=== PATIENT | male | born 1940 | race Caucasian/White ===

== ENCOUNTER 2017-02-21 14:30 | Outpatient (RCR) | payer MEDICARE | END 2017-05-22 | disposition home or self-care (01) | LOC: ONC 14:30 | PROVIDERS: ATTEND Radiology Radiation Oncology | DX: C61 Malignant neoplasm of prostate (principal) | CPT/HCPCS: 99213 ==

== ENCOUNTER → 2017-07-10 | Outpatient (CLI) | payer MEDICARE | LOC: EDSTATUS 05-23 14:27 → ONC 14:29 | PROVIDERS: ATTEND Radiology Radiation Oncology | DX: C61 Malignant neoplasm of prostate (principal) | CPT/HCPCS: 99213 ==

== ENCOUNTER 2018-03-03 19:32 | Inpatient (IN) | payer MEDICARE ==
[~2018-03-03] VITALS: Ht 167.6 cm; Wt 75.8 kg
[2018-03-03] VITALS (7 sets, daily range): BP systolic 129–164; BP diastolic 77–87
--- OUTSIDE RECORDS SUMMARY | 2018-03-03 19:38 | XMS REPORT | Continuity of Care Document ---
Author Author [facility] Organization [facility] Address Unknown Phone Unavailable Allergies There is no data. Medications There is no data. Problems Date Dx Coded Attending Type Code Diagnosis Diagnosed By 05/27/2015 DANIS HALEY MD Ot 185 07/14/2015 UYEN CHÁVEZ MD Ot 185 07/21/2015 UYEN CHÁVEZ MD Ot 185 MALIGN NEOPL PROSTATE 09/24/2015 UYEN CHÁVEZ MD Ot 185 10/08/2015 UYEN CHÁVEZ MD Ot C61 10/08/2015 UYEN CHÁVEZ MD Ot Z51.0 11/04/2015 UYEN CHÁVEZ MD Ot C61 MALIGNANT NEOPLASM OF PROSTATE 11/04/2015 UYEN CHÁVEZ MD Ot Z51.0 ENCOUNTER FOR ANTINEOPLASTIC RADIATION T 11/30/2015 YUEN CHÁVEZ MD E Ot C61 11/30/2015 UYEN CHÁVEZ MD Ot Z51.0 11/30/2015 UYEN CHÁVEZ MD Ot C61 11/30/2015 UYEN CHÁVEZ MD E Ot Z51.0 12/13/2015 UYEN CHÁVEZ MD Ot C61 06/02/2016 UYEN CHÁVEZ MD Ot C61 MALIGNANT NEOPLASM OF PROSTATE 06/05/2016 UYEN CHÁVEZ MD Ot C61 MALIGNANT NEOPLASM OF PROSTATE 06/09/2016 UYEN CHÁVEZ MD Ot C61 MALIGNANT NEOPLASM OF PROSTATE 02/22/2017 UYEN CHÁVEZ MD Ot C61 MALIGNANT NEOPLASM OF PROSTATE 04/04/2017 UYEN CHÁVEZ MD Ot C61 MALIGNANT NEOPLASM OF PROSTATE 05/22/2017 UYEN CHÁVEZ MD Ot C61 MALIGNANT NEOPLASM OF PROSTATE 07/10/2017 UYEN CHÁVEZ MD Ot C61 MALIGNANT NEOPLASM OF PROSTATE 07/20/2017 UYEN CHÁVEZ MD Ot C61 MALIGNANT NEOPLASM OF PROSTATE 02/08/2018 DANIS HALEY MD Ot 185 MALIGN NEOPL PROSTATE 02/08/2018 UYEN CHÁVEZ MD Ot C61 MALIGNANT NEOPLASM OF PROSTATE 02/08/2018 UYEN CHÁVEZ MD Ot C61 MALIGNANT NEOPLASM OF PROSTATE 02/08/2018 UYEN CHÁVEZ MD Ot C61 MALIGNANT NEOPLASM OF PROSTATE 02/25/2018 GRIFFIN WADDELL FACC, TEJAL FACP CCDS Ot E78.4 OTHER HYPERLIPIDEMIA 02/25/2018 GRIFFIN WADDELL FACC, TEJAL FACP CCDS Ot I25.10 ATHSCL HEART DISEASE OF [place] CORONARY 02/25/2018 GRIFFIN WADDELL FACC, TEJAL FACP CCDS Ot I50.31 ACUTE DIASTOLIC (CONGESTIVE) HEART FAILU 02/25/2018 GRIFFIN WADDELL FACC, TEJAL FACP CCDS Ot R53.1 WEAKNESS 02/25/2018 GRIFFIN WADDELL FACC, ALI FACP CCDS Ot Z85.46 PERSONAL HISTORY OF MALIGNANT NEOPLASM O Procedures There is no data. Results There is no data. Encounters ACCT No. Visit Date/Time Discharge Status Pt. Type Provider Facility Loc./Unit Complaint [id number] 02/11/2018 10:50:00 02/11/2018 23:59:59 CLS Outpatient TEJAL MOYA MD, FACC FACP CCDS [facility] CARD WEAKNESS, ACUTE DIASTOLIC CHF [id number] 07/10/2017 14:29:00 07/10/2017 23:59:59 CLS Outpatient UYEN CHÁVEZ MD [facility] ONC [id number] 02/21/2017 14:30:00 05/22/2017 00:01:00 DIS Outpatient UYEN CHÁVEZ MD [facility] ONC [id number] 05/30/2016 12:07:00 05/30/2016 23:59:59 CLS Outpatient UYEN CHÁVEZ MD [facility] ONC [id number] 11/30/2015 13:11:00 11/30/2015 23:59:59 CLS Outpatient UYEN CHÁVEZ MD [facility] ONC [id number] 10/20/2015 12:35:00 11/04/2015 00:01:00 DIS Outpatient UYEN CHÁVEZ MD [facility] ONC [id number] 07/08/2015 08:08:00 07/21/2015 00:01:00 DIS Outpatient UYEN CHÁVEZ MD [facility] ONC [id number] 05/05/2015 09:09:00 05/05/2015 23:59:59 CLS Outpatient TERA WADDELL, DANIS Carlin [facility] RAD PROSTATE CA
[2018-03-03 19:53] LABS: BASOPHILS % (AUTO) 0 % (0-10); EOSINOPHILS # (AUTO) 0.1 10^3/uL (0.0-0.3); EOSINOPHILS % (AUTO) 1 % (0-10); HEMATOCRIT 38 % (40-54); HEMOGLOBIN 12.7 G/DL (13.3-17.7); LYMPHOCYTES # (AUTO) 0.8 X 10^3 (1.0-4.0); LYMPHOCYTES % (AUTO) 18 % (12-44); MEAN CORPUSCULAR HEMOGLOBIN 30 PG (25-34); MEAN CORPUSCULAR HGB CONC 33 G/DL (32-36); MEAN CORPUSCULAR VOLUME 90 FL (80-99); MONOCYTES # (AUTO) 0.3 X 10^3 (0.0-1.0); MONOCYTES % (AUTO) 7 % (0-12); NEUTROPHILS # (AUTO) 3.4 X 10^3 (1.8-7.8); NEUTROPHILS % (AUTO) 73 % (42-75); PLATELET COUNT 146 10^3/uL (130-400); RED BLOOD COUNT 4.22 10^6/uL (4.35-5.85); RED CELL DISTRIBUTION WIDTH 14.4 % (10.0-14.5); WHITE BLOOD COUNT 4.7 10^3/uL (4.3-11.0)
--- NOTE | 2018-03-03 19:57 | ED Respiratory ---
General Chief Complaint: Respiratory Problems Stated Complaint: DIFF BREATHING Nursing Triage Note: PT TO ED 8 W/ C/O SOB X1 WK, WORSE PAST 3 DAYS. REPORTS HAS FLUID AROUND HIS HEART W/ A "DRAIN" THAT WAS RECENTLY PLACED. Source: patient Exam Limitations: no limitations History of Present Illness Date Seen by Provider: March 03, 2018 Time Seen by Provider: 19:35 Initial Comments Here with report of shortness of air that has worsened over the last 2 days. Was in the hospital at [facility] in [place] with report of significant amount of pleural effusion as well as pericardial effusion. He did have a drain and had about a liter of fluid taken off each area. This was apparently better. He was short of breath when he left the hospital a week ago on worse until presentation to today. Normally follows with Dr. Chatterjee. Complains of swelling in his legs with left greater than right and swelling although to the scrotum. This is apparently not as bad as it has been but is still swollen. Denies fevers or vomiting. Does complain of weakness. Reports taking his meds as directed. Timing/Duration: week, getting worse Severity: moderate Modifying Factors: Worse With Activity; Improves With Rest Associated Symptoms: cough; No fever/chills, No nasal congestion, No nasal drainage; shortness of breath Allergies and Home Medications Allergies Coded Allergies: No Known Drug Allergies (Unverified , 03/03/18) Patient Home Medication List Home Medication List Reviewed: Yes Review of Systems Constitutional: see HPI; No chills, No fever; malaise, weakness EENTM: no symptoms reported Respiratory: see HPI, dyspnea on exertion, short of breath; No wheezing Cardiovascular: No chest pain; edema Gastrointestinal: No abdominal pain, No nausea, No vomiting Genitourinary: no symptoms reported Musculoskeletal: see HPI; No joint pain; muscle weakness Skin: change in color, other Psychiatric/Neurological: No Symptoms Reported Hematologic/Lymphatic: No Symptoms Reported All Other Systems Reviewed Negative Unless Noted: Yes Past Rstbjdx-Kzwstv-Wysmyn Hx Past Med/Social Hx: Reviewed Nursing Past Med/Soc Hx Patient Social History Alcohol Use: Denies Use Recreational Drug Use: No Smoking Status: Former Smoker Type Used: Cigarettes Former Smoker, Quit: February 19, 1986 2nd Hand Smoke Exposure: No Recent Foreign Travel: No Contact w/Someone Who Travel: No Recent Infectious Disease Expo: No Recent Hopitalizations: No Physical Abuse: No Sexual Abuse: No Mistreated: No Fear: No Past Medical History Surgeries: Yes (HERNIA REPAIR, "DRAIN IN HEART", AAA, ROTATOR CUFF) Cardiac Respiratory: No Cardiac: Yes Heart Attack, High Cholesterol Neurological: No Genitourinary: No Gastrointestinal: No Musculoskeletal: No Endocrine: No Cancer: Yes Bladder, Prostate, Bone, Skin Psychosocial: No Nursing Suicide Risk Score: 0 Integumentary: No Blood Disorders: No Family Medical History Reviewed Nursing Family Hx No Pertinent Family Hx Physical Exam Vital Signs Vital Signs - First Documented 03/03/18 03/03/18 19:36 19:52 Temp 98.0 Pulse 94 Resp 24 B/P (MAP) 164/77 (106) Pulse Ox 93 O2 Delivery Room Air O2 Flow Rate 2.00 Capillary Refill : Less Than 3 Seconds General Appearance: WD/WN, no apparent distress HEENT: PERRL/EOMI, pharynx normal Neck: full range of motion, supple Respiratory: no respiratory distress, no accessory muscle use, other ( hyperresonant sounds in the bases bilateral with left greater than right.) Cardiovascular: no murmur, tachycardia Gastrointestinal: non tender, soft, other (central epigastric incision were previous drain site was. Clean dry and intact.) Extremities: no pedal edema (bilateral left greater than right up to the level of the knee.) Neurologic/Psychiatric: alert, oriented x 3 Skin: normal color, warm/dry Progress/Results/Core Measures Suspected Sepsis Recent Fever Within 48 Hours: No Infection Criteria Present: None New/Unexplained Altered Menta: No Sepsis Screen: No Definite Risk SIRS Temperature:98.0 Pulse: 94 Respiratory Rate: 24 Laboratory Tests 03/03/18 19:47: White Blood Count 4.7 Blood Pressure 164 /77 Mean: 106 Laboratory Tests 03/03/18 19:47: Creatinine 1.10, Platelet Count 146, Total Bilirubin 0.8 Results/Orders Lab Results Laboratory Tests Test 03/03/18 19:47 Range/Units White Blood Count 4.7 4.3-11.0 10^3/uL Red Blood Count 4.22 L 4.35-5.85 10^6/uL Hemoglobin 12.7 L 13.3-17.7 G/DL Hematocrit 38 L 40-54 % Mean Corpuscular Volume 90 80-99 FL Mean Corpuscular Hemoglobin 30 25-34 PG Mean Corpuscular Hemoglobin Concent 33 32-36 G/DL Red Cell Distribution Width 14.4 10.0-14.5 % Platelet Count 146 130-400 10^3/uL Mean Platelet Volume 11.0 H 7.4-10.4 FL Neutrophils (%) (Auto) 73 42-75 % Lymphocytes (%) (Auto) 18 12-44 % Monocytes (%) (Auto) 7 0-12 % Eosinophils (%) (Auto) 1 0-10 % Basophils (%) (Auto) 0 0-10 % Neutrophils # (Auto) 3.4 1.8-7.8 X 10^3 Lymphocytes # (Auto) 0.8 L 1.0-4.0 X 10^3 Monocytes # (Auto) 0.3 0.0-1.0 X 10^3 Eosinophils # (Auto) 0.1 0.0-0.3 10^3/uL Basophils # (Auto) 0.0 0.0-0.1 10^3/uL Sodium Level 140 135-145 MMOL/L Potassium Level 4.8 3.6-5.0 MMOL/L Chloride Level 109 H 98-107 MMOL/L Carbon Dioxide Level 20 L 21-32 MMOL/L Anion Gap 11 5-14 MMOL/L Blood Urea Nitrogen 36 H 7-18 MG/DL Creatinine 1.10 0.60-1.30 MG/DL Estimat Glomerular Filtration Rate > 60 BUN/Creatinine Ratio 33 Glucose Level 197 H 70-105 MG/DL Calcium Level 8.2 L 8.5-10.1 MG/DL Total Bilirubin 0.8 0.1-1.0 MG/DL Aspartate Amino Transf (AST/SGOT) 34 5-34 U/L Alanine Aminotransferase (ALT/SGPT) 26 0-55 U/L Alkaline Phosphatase 875 H 40-136 U/L Myoglobin 66.6 10.0-92.0 NG/ML Troponin I < 0.30 <0.30 NG/ML C-Reactive Protein High Sensitivity 5.34 H 0.00-0.50 MG/DL B-Type Natriuretic Peptide 97.1 <100.0 PG/ML Total Protein 6.6 6.4-8.2 GM/DL Albumin 3.6 3.2-4.5 GM/DL Thyroid Stimulating Hormone (TSH) 0.68 0.35-4.94 UIU/ML My Orders Orders - ENEDINA ARIAS MD BNP (03/03/18 19:45) Cbc With Automated Diff (03/03/18:45) Comprehensive Metabolic Panel (03/03/18:45) Hs C Reactive Protein (03/03/18:45) Thyroid Stimulating Hormone (03/03/18 19:45) Troponin I (03/03/18:45) Myoglobin Serum (03/03/18:45) Chest 1 View, Ap/Pa Only (03/03/18:45) Ekg Tracing (03/03/18:45) O2 (03/03/18:45) Monitor-Rhythm Ecg Trace Only (03/03/18:45) Morphine Injection (Morphine Injection (03/03/18 20:44) Morphine Injection (Morphine Injection (03/03/18 20:41) Vital Signs/I&O 03/03/18 03/03/18 19:36 19:52 Temp 98.0 Pulse 94 Resp 24 B/P (MAP) 164/77 (106) Pulse Ox 93 93 O2 Delivery Room Air Nasal Cannula O2 Flow Rate 2.00 Capillary Refill : Less Than 3 Seconds Blood Pressure Mean: 106 Progress Note : Progress Note Seen and evaluated. IV, labs, EKG and chest x-ray ordered. Monitor patient. 2100: Labs reviewed. Patient received morphine 4 mg IV for air hunger and pain and this did help quite a bit. Complicated case in that he has the recent pericardial window and the return of the large left pleural effusion. Unsure of etiology. Also has edema but the BNP is not elevated. There is concerns about other etiology as a cause of the edema including cancer conditions. I did discuss the case with Dr. Zacarias. He agrees that the patient is able to be managed here and will need draining of the pleural effusion. He is concerned about other etiology for the edema including possibly cancer. Patient has not had imaging of the abdomen/pelvis recently. I did discuss the case with Dr. Sheikh carton liner for hospitalist service. He accepts patient for admission. He also has concerns about the possibility of other etiology for edema and effusions. Patient will be under the service of Dr. Chatterjee for consult as the patient was due to see him and his info has been sent to Dr. Chatterjee. I did write for consult of Dr. Chatterjee and Dr. Mayen in the morning. I did discuss all of this with the patient and family. They do report that he did have prostate cancer and there apparently was some bony lesions associated with this. He did receive radiation therapy on this and that was about 3 years ago. Was released last year. It does not appear that he's had recent imaging of the abdomen and there are certainly is concern about abdominal pathology due to elevated alkaline phosphatase and low calcium. This may be the result of bony lesions or other lesions. Dr. Sheikh did agree that CT abdomen and pelvis with contrast would be indicated but this could wait until the patient was in the hospital and could be done tomorrow. We will initiate IV furosemide for the edema and effusions. Admit to the ICU. Patient and family agree with plan. ECG Initial ECG Impression Date: March 03, 2018 Initial ECG Impression Time: 19:52 Initial ECG Rate: 93 Initial ECG Rhythm: Normal Sinus Initial ECG Comparisson: No Previous ECG Available Comment Sinus rhythm with normal axis. No evidence of ST elevation [place]. No previous available for comparison. Interpreted by me. Departure Communication (Admissions) Time/Spoke to Admitting Phy: 20:54 Time/Spoke to Consulting Phy: 20:45 Impression Primary Impression: Pleural effusion, left Additional Impressions: Dyspnea Qualified Codes: R06.02 - Shortness of breath Edema Qualified Codes: R60.9 - Edema, unspecified Elevated alkaline phosphatase level Disposition: ADMITTED INPATIENT Condition: Stable Admissions Decision to Admit Reason: Admit from ER (General) Decision to Admit/Date: March 03, 2018 Time/Decision to Admit Time: 20:45 Departure-Patient Inst. Referrals: JOSE ANGEL SIN APRN (PCP/Family) Primary Care Physician ENEDINA ARIAS MD March 03, 2018 19:57
--- NOTE | 2018-03-03 20:07 | Diagnostic Imaging Report ---
INDICATION: Shortness of breath. EXAMINATION: Single view of the chest was obtained. FINDINGS: There is a large left pleural effusion. Heart appears mildly enlarged. Vascularity is normal. IMPRESSION: Large left pleural effusion. Dictated by: Dictated on workstation # [id number]
[2018-03-03 20:24] LABS: ALANINE AMINOTRANSFERASE 26 U/L (0-55); ALBUMIN 3.6 GM/DL (3.2-4.5); ALKALINE PHOSPHATASE 875 U/L (40-136); BILIRUBIN,TOTAL 0.8 MG/DL (0.1-1.0); BUN/CREATININE RATIO 33; CALCIUM 8.2 MG/DL (8.5-10.1); CARBON DIOXIDE 20 MMOL/L (21-32); CHLORIDE 109 MMOL/L (98-107); GFR ESTIMATED > 60; GLUCOSE 197 MG/DL (70-105); POTASSIUM 4.8 MMOL/L (3.6-5.0); SODIUM 140 MMOL/L (135-145); TOTAL PROTEIN 6.6 GM/DL (6.4-8.2)
[2018-03-03] MEDS ORDERED: morphine INJ 10 MG/ML 1ML (SYR OR VIAL) ONE (20:41)
[2018-03-03] MEDS ORDERED: morphine INJ 10 MG/ML 1ML (SYR OR VIAL) IVP STA (20:44)
[2018-03-03 20:45] LABS: MYOGLOBIN SERUM 66.6 NG/ML (10.0-92.0)
[2018-03-03] MEDS ORDERED: CATHETER FLUSH 10 ML SYR IV PRN (22:45)
[2018-03-03] MEDS ORDERED: RT-ALBUTEROL SULF 2.5 MG/3 ML PRE-MIX VIAL INH PRN (23:15)
[2018-03-03] MEDS: morphine INJ 4 MG/ML 1 ML (VIAL/SYRINGE) IV PRN (23:40)
[2018-03-04] VITALS (22 sets, daily range): BP systolic 94–156; BP diastolic 52–109
[2018-03-04] MEDS: morphine INJ 4 MG/ML 1 ML (VIAL/SYRINGE) IV PRN (03:15)
[2018-03-04 04:22] LABS: BASOPHILS % (AUTO) 0 % (0-10); EOSINOPHILS # (AUTO) 0.1 10^3/uL (0.0-0.3); EOSINOPHILS % (AUTO) 1 % (0-10); HEMATOCRIT 37 % (40-54); HEMOGLOBIN 12.3 G/DL (13.3-17.7); LYMPHOCYTES # (AUTO) 0.6 X 10^3 (1.0-4.0); LYMPHOCYTES % (AUTO) 14 % (12-44); MEAN CORPUSCULAR HEMOGLOBIN 30 PG (25-34); MEAN CORPUSCULAR HGB CONC 33 G/DL (32-36); MEAN CORPUSCULAR VOLUME 90 FL (80-99); MEAN PLATELET VOLUME 11.4 FL (7.4-10.4); MONOCYTES # (AUTO) 0.4 X 10^3 (0.0-1.0); MONOCYTES % (AUTO) 8 % (0-12); NEUTROPHILS # (AUTO) 3.6 X 10^3 (1.8-7.8); NEUTROPHILS % (AUTO) 77 % (42-75); PLATELET COUNT 133 10^3/uL (130-400); RED BLOOD COUNT 4.09 10^6/uL (4.35-5.85); RED CELL DISTRIBUTION WIDTH 14.6 % (10.0-14.5); WHITE BLOOD COUNT 4.7 10^3/uL (4.3-11.0)
[2018-03-04 04:37] LABS: ALANINE AMINOTRANSFERASE 21 U/L (0-55); ALBUMIN 3.4 GM/DL (3.2-4.5); ALKALINE PHOSPHATASE 861 U/L (40-136); BILIRUBIN,TOTAL 0.9 MG/DL (0.1-1.0); BUN/CREATININE RATIO 42; CALCIUM 8.1 MG/DL (8.5-10.1); CARBON DIOXIDE 18 MMOL/L (21-32); CHLORIDE 110 MMOL/L (98-107); CREATININE SERUM 0.79 MG/DL (0.60-1.30); GFR ESTIMATED > 60; GLUCOSE 157 MG/DL (70-105); MAGNESIUM 2.5 MG/DL (1.8-2.4); PHOSPHORUS 2.9 MG/DL (2.3-4.7); POTASSIUM 4.4 MMOL/L (3.6-5.0); SODIUM 140 MMOL/L (135-145); TOTAL PROTEIN 6.3 GM/DL (6.4-8.2)
[2018-03-04] MEDS: POTASSIUM CL 10MEQ/50ML IVPB 50 ML IV SCH (05:05)
[2018-03-04] MEDS: inSUlin ASPART (NovoLOG) 1 UNIT/0.01 ML (CHARGE PER UNIT) SQ SCH ×4 (05:06→22:19)
[2018-03-04] MEDS: KCL 20 MEQ TAB (K-DUR) PO SCH (05:06)
[2018-03-04] MEDS: MAGNESIUM 1 GM/100 ML IVPB 100 ML IV SCH (05:06)
--- NOTE | 2018-03-04 05:09 | Pulmonary Consultation ---
History of Present Illness History of Present Illness Date of Consultation 03/04/18 05:04 Time Seen by Provider: 05:04 Date of Admission History of Present Illness 77yo with hx of prostate cancer and mets to the bone Dx about 6 mo ago per patient presented secondary to worsening SOB over the last 2 days. Pt was recently hospitalized at [facility] in [place] secondary to pleural and pericardial effusion which were both drained. Pt also c/o bilateral LE edema and scrotal edema. I am consulted for pulmonary management. Allergies and Home Medications Allergies Coded Allergies: No Known Drug Allergies (Unverified , 03/03/18) Home Medications Acetaminophen 500 Mg Tablet, 1,500 MG PO BID PRN for PAIN-MILD, (Reported) Aspirin 81 Mg Tab.chew, 81 MG PO DAILY, (Reported) Cetirizine HCl 10 Mg Tablet, 10 MG PO DAILY PRN for ALLERGIES, (Reported) Clopidogrel Bisulfate 75 Mg Tablet, 75 MG PO DAILY, (Reported) Fluticasone Propionate 9.9 Ml Ione.susp, 2 SPRAY NS DAILY PRN for ALLERGIES, ( Reported) Furosemide 40 Mg Tablet, 40 MG PO 1700, (Reported) Hydrocodone/Acetaminophen 1 Each Tablet, 1 TAB PO Q4H PRN for PAIN-MODERATE, ( Reported) Metoprolol Succinate 25 Mg Tab.er.24h, 25 MG PO DAILY, (Reported) Paroxetine HCl 20 Mg Tablet, 20 MG PO DAILY, (Reported) Potassium Chloride 20 Meq Tab.er.prt, 20 MEQ PO 1700, (Reported) Past Jisnkfj-Cmyolv-Ikvvtc Hx Past Med/Social Hx: Reviewed Nursing Past Med/Soc Hx Patient Social History Alcohol Use: Denies Use Recreational Drug Use: No Smoking Status: Former Smoker Type Used: Cigarettes Former Smoker, Quit: February 19, 1986 2nd Hand Smoke Exposure: No Recent Foreign Travel: No Contact w/Someone Who Travel: No Recent Infectious Disease Expo: No Recent Hopitalizations: No Physical Abuse: No Sexual Abuse: No Mistreated: No Fear: No Immunizations Up To Date Date of Pneumonia Vaccine: Jul 04, 2016 Past Medical History Surgeries: Yes (HERNIA REPAIR, AAA, ROTATOR CUFF, PERICARDIAL WINDOW) Cardiac Respiratory: No Cardiac: Yes (7 CARDIAC STENTS, 4 PERIPHERAL STENTS, AAA) Heart Attack, High Cholesterol Neurological: No Genitourinary: Yes Prostate Problems Gastrointestinal: No Musculoskeletal: No Endocrine: Yes (DIET CONTROLLED.) Are Your Blood Sugars Over 250: No HEENT: No Cancer: Yes Bladder, Prostate, Bone, Skin Did You Recieve Any Treatments: Yes What Type of Treatment Did You: Radiation Psychosocial: No Nursing Suicide Risk Score: 0 Integumentary: No Blood Disorders: No Family Medical History Reviewed Nursing Family Hx No Pertinent Family Hx Review of Systems Time Seen by Provider: 05:19 Constitutional: Sweats, Weakness, Malaise ENT: Nose congestion Respiratory: Shortness of breath, SOB with excertion Cardiovascular: Paroxysmal Noc. Dyspnea Gastrointestinal: No: Nausea, Vomiting, Abdominal Pain, Diarrhea, Constipation , Melena, Hematochezia, Other Neurological: Weakness, Confusion Exam Exam Vital Signs Date Time Temp Pulse Resp B/P (MAP) Pulse Ox O2 Delivery O2 Flow Rate FiO2 03/04/18 02:00 98 29 139/87 (104) 93 Nasal Cannula 2.00 03/04/18 01:00 97 03/04/18 01:00 97 23 156/87 (110) 97 Nasal Cannula 2.00 03/04/18 00:00 96 Nasal Cannula 2.00 03/04/18 00:00 95 17 141/81 (101) 94 Nasal Cannula 2.00 03/03/18 23:15 89 30 136/78 (97) 96 Nasal Cannula 2.00 03/03/18 23:06 87 2 32 03/03/18 23:00 91 30 129/82 (98) 96 Nasal Cannula 2.00 03/03/18 22:45 81 17 130/87 (101) 97 Nasal Cannula 2.00 03/03/18 22:35 Nasal Cannula 2.00 03/03/18 22:30 86 33 135/81 (99) 98 Nasal Cannula 2.00 03/03/18 22:15 87 23 133/82 (99) 99 Nasal Cannula 2.00 03/03/18 22:01 87 03/03/18 22:00 87 21 147/87 (107) 96 Nasal Cannula 2.00 03/03/18 21:50 98.6 Nasal Cannula 2.00 03/03/18 21:40 92 24 132/76 97 Nasal Cannula 2.00 03/03/18 19:52 93 Nasal Cannula 2.00 03/03/18 19:36 98.0 94 24 164/77 (106) 93 Room Air I & O 03/04/18 07:00 Intake Total 100 ml Output Total 375 ml Balance -275 ml General Appearance: Anxious, Moderate Distress HEENT: Normal ENT Inspection, Pharynx Normal Neck: Full Range of Motion, Supple Respiratory: Decreased Breath Sounds (left > Right) Cardiovascular: Other (edema bilaterally upto scrotom ) Capillary Refill: Less Than 3 Seconds Gastrointestinal: non tender, soft, other (central epigastric incision were previous drain site was. Clean dry and intact.) Neurologic/Psychiatric: Alert, Oriented x3 Skin: Normal Color, Warm/Dry Results Lab Laboratory Tests 03/03/18 19:47 03/04/18 03:45 Assessment/Plan Assessment/Plan Large left pleural effusion -Pt states he very SOB and wants effusion drained. He is on Plavix however pt is willing to take risk of bleeding secondary to severe SOB. -Will do thoracentesis this AM. BNP is only 97 -Will send pleural fluid down to cytology -Obtain records from [facility] hx of prostate cancer with mets to bone -Alk phos is elevated -check PSA -Check CT of chest/abd/pelvis with IV contrast Hx of pericardial effusion s/p window 255 ESTEBAN PEACOCK DO March 04, 2018 05:09
[2018-03-04] MEDS ORDERED: LIDOCAINE 1% INJ 20 ML 20 ML VIAL ONE (05:18)
[2018-03-04] MEDS ORDERED: ONDANSETRON 4 MG/2 ML (SDV) Z0FRAN ONE (05:39)
[2018-03-04] MEDS ORDERED: ONDANSETRON 4 MG/2 ML (SDV) Z0FRAN IVP ONE (06:00)
[2018-03-04] MEDS ORDERED: LIDOCAINE 1% INJ 20 ML 20 ML VIAL INJ ONE (06:00)
[2018-03-04] MEDS: RT-ALBUTEROL SULF 2.5 MG/3 ML PRE-MIX VIAL INH SCH ×4 (06:31→19:40)
[2018-03-04] MEDS: FUROSEMIDE 40 MG/4 ML INJ (LASIX) IV SCH ×2 (06:57→17:00)
--- NOTE | 2018-03-04 07:13 | Pulmonary Procedures ---
Pulmonary Procedures Date of Procedure Date of Service: March 04, 2018 Procedure: US guided complex thoracentesis Preop DX: bilateral pleural effusion post op DX: Same ([2500]cc of red/orange fluid obtained) Complications: None After informed consent obtained US was used to localize pleural fluid. Pt has [ bilateral L>R] pleural effusions. Skin was anesthetized at approximately the 10th ICS posterior axillary line. Thoracentesis needle was advanced through the 10th ICS posterior axillary line. Needle was removed and catheter left in place.2500]cc of red/orange fluid obtained using vacuum bottles. Catheter was then removed. Pt tolerated procedure well. No complications noted. ESTEBAN PEACOCK DO March 04, 2018 07:13
--- NOTE | 2018-03-04 07:28 | Diagnostic Imaging Report ---
INDICATION: Dyspnea. COMPARISON: Comparison is made with the prior examination dated 03/03/2018. FINDINGS: There is persistent elevation of the left hemidiaphragm. There are bibasilar infiltrates. There is moderate central pulmonary venous congestion. There is no pneumothorax. Mediastinum is unremarkable. IMPRESSION: Elevation of the left hemidiaphragm with bibasilar infiltrates. Moderate central pulmonary venous congestion. Dictated by: Dictated on workstation # [id number]
[2018-03-04] MEDS ORDERED: NS 250 ML (IVPB) BAG IV ONE (07:30)
[2018-03-04] MEDS ORDERED: IOHEXOL 350 MG/ML 150 ML (OMNIPAQUE 350) VIAL IV ONE (07:30)
--- NOTE | 2018-03-04 07:30 | Diagnostic Imaging Report ---
INDICATION: Pleural effusion. Comparison made with prior examination 03/04/2018. FINDINGS: Heart size is normal. There is a right perihilar and left basilar infiltrate. There is no pneumothorax. Mediastinum is unremarkable. Left pleural effusion cannot be excluded. IMPRESSION: Right perihilar and left base infiltrate suspect for some pneumonia. A small left pleural effusion cannot be excluded. Dictated by: Dictated on workstation # [id number]
[2018-03-04 07:44] LABS: BODY FLUID TRIGLYCERIDES 805 MG/DL; GLUCOSE,BODY FLUID 144 MG/DL; LDH,BODY FLUID 262 U/L; TOTAL PROTEIN,BODY FLUID 4.5 G/DL
[2018-03-04] MEDS: CLOPIDOGREL 75 MG (PLAVIX) TABLET PO SCH (08:08)
--- NOTE | 2018-03-04 09:02 | History & Physical-Hospitalist ---
History of Present Illness HPI/Chief Complaint Pt is a 77yoCM with a PMH of metastatic prostate cancer,CAD s/p stent, AAA s/p repair, and recent bilateral pericardial effusions and pleural effusions both drained at [facility] in [place] who presented to the ER with CC of SOB. He states all of his symptoms started 3 months ago with SOB, leg swelling, and groin swelling. Unfortunately his PCP closed his clinic so he had only been receiving care and workups from different ERs. Around 1 month ago he presented to the ER at [facility] for evaluation and was admitted for roughly 10 days for pleural effusions and and pericardial effusion. He underwent thoracentesis and pericardial window. He was discharged home improved but still had significant shortness of breath. This worsened prompting him to return to the ER. He was found to be very edematous and given IV lasix. He underwent thoracentesis by Dr Mayen prior to my arrival and he now states his symptoms are much improved. Source: patient Exam Limitations: no limitations Date Seen 03/04/18 Time Seen by Provider: 09:00 Attending Physician Jose Sheikh MD PCP Yuliya Huerta Aprn Referring Physician Date of Admission March 03, 2018 at 9:22 pm Home Medications & Allergies Home Medications Reviewed patient Home Medication Reconciliation performed by pharmacy medication reconciliations product support technician and/or nursing. Patients Allergies have been reviewed. Allergies Allergies Coded Allergies No Known Drug Allergies (Unverified03/03/18) Past Wbvijse-Oeucnu-Wgnobr Hx Past Med/Social Hx: Reviewed Nursing Past Med/Soc Hx Patient Social History Marrital Status: Alcohol Use: Denies Use Recreational Drug Use: No Smoking Status: Former Smoker Former Smoker, Quit: February 19, 1986 Type Used: Cigarettes 2nd Hand Smoke Exposure: No Physical Abuse Screen: No Sexual Abuse: No Recent Foreign Travel: No Contact w/other who traveled: No Recent Hopitalizations: No Recent Infectious Disease Expo: No Immunizations Up To Date Date of Pneumonia Vaccine: Jul 04, 2016 Past Medical History Surgeries: Abdominal, Cardiac, Orthopedic Cardiac: Aneurysm, Coronary Artery Disease, Heart Attack, High Cholesterol Genitourinary: Prostate Problems Are Your Blood Sugars Over 250: No Cancer: Bladder, Prostate, Bone, Skin Did You Recieve Any Treatments: Yes What Type of Treatment Did You: Radiation History of Blood Disorders: No Family History Reviewed Nursing Family Hx Heart Disease, Cancer, Other Conditions/Hx (parkinson's) Review of Systems Constitutional: No chills, No fever EENTM: No blurred vision, No double vision, No nose congestion, No throat pain Respiratory: dyspnea on exertion; No hemoptysis; short of breath Cardiovascular: No chest pain; edema, Hx of Intervention; No palpitations Gastrointestinal: abdominal pain (postsurgical); No constipation, No diarrhea, No nausea, No vomiting Genitourinary: No dysuria, No frequency; hesitancy Musculoskeletal: No joint pain, No muscle pain Skin: other (bruising on abdomen) Psychiatric/Neurological: No Symptoms Reported All Other Systems Reviewed Negative Unless Noted: Yes Physical Exam Physical Exam Vital Signs Vital Signs - First Documented 03/03/18 03/03/18 03/03/18 19:36 19:52 23:06 Temp 98.0 Pulse 94 Resp 24 B/P (MAP) 164/77 (106) Pulse Ox 93 O2 Delivery Room Air O2 Flow Rate 2.00 FiO2 32 Capillary Refill : Less Than 3 Seconds General Appearance: No Apparent Distress, Chronically ill HEENT: PERRL/EOMI, Moist Mucous Membranes; No Scleral Icterus (L), No Scleral Icterus (R) Neck: Non Tender, Supple Respiratory: No Accessory Muscle Use, No Respiratory Distress, Decreased Breath Sounds Cardiovascular: Regular Rate, Rhythm, No Murmur, Normal Peripheral Pulses Gastrointestinal: Normal Bowel Sounds, Soft Extremity: Normal Capillary Refill, No Calf Tenderness, Swelling (of left lower extremity- reports chronic) Neurologic/Psychiatric: Alert, Oriented x3, No Motor/Sensory Deficits, Normal Mood/Affect Skin: Normal Color, Warm/Dry Results Results/Procedures Labs Laboratory Tests 03/03/18 19:47 03/04/18 03:45 03/05/18 03:43 Patient resulted labs reviewed. Imaging: Reviewed Imaging Report Assessment/Plan Admission Diagnosis Recurrent pleural effusions Admission Status: Inpatient Order (span 2 midnights) Reason for Inpatient Admission: pulm eval, thoracentesis Diagnosis/Problems Diagnosis/Problems (1) Pleural effusion, left Status: Acute Assessment & Plan: s/p thoracentesis this AM by Dr Tiarra Ashraf IV lasix fluid sent for culture and path (2) Prostate cancer metastatic to bone Status: Chronic Assessment & Plan: Diagnosed 3 years ago, declined aggressive treatment at the time Concerned that elevated alk phos, recurrently effusions, and anasarca due to recurrence CT Chest/Abd/pelvis ordered- await results Palliative care consult placed (3) Elevated alkaline phosphatase level Status: Acute Assessment & Plan: As above (4) Edema Status: Acute Assessment & Plan: Continue on lasix Await CT results Qualifiers: Edema type: unspecified Qualified Codes: R60.9 - Edema, unspecified (5) CAD (coronary artery disease) Status: Chronic Assessment & Plan: Cardiology consulted, appreciate recs Qualifiers: Coronary Disease-Associated Artery/Lesion type: [place] artery [place] vs. transplanted heart: [place] heart Associated angina: without angina Qualified Codes: I25.10 - Atherosclerotic heart disease of [place] coronary artery without angina pectoris (6) Aortic aneurysm Status: Chronic Assessment & Plan: Found incidentally at outside hospital and s/p repair Qualifiers: Aortic location: abdominal aorta Presence of rupture: without rupture Qualified Codes: I71.4 - Abdominal aortic aneurysm, without rupture Clinical Quality Measures DVT/VTE Risk/Contraindication: Risk Factor Score Per Nursin RFS Level Per Nursing on Admit: 4+=Very High DONA MORAN MD March 04, 2018 09:02
[2018-03-04 09:11] LABS: BODY FLUID SOURCE PLEURAL
--- NOTE | 2018-03-04 09:11 | Diagnostic Imaging Report ---
PROCEDURE: CT angiography of the chest with contrast and CT abdomen and pelvis with contrast. TECHNIQUE: Multiple contiguous axial images were obtained through the chest, abdomen, and pelvis after administration of intravenous contrast. Reconstructed MIP CT angiography acquisitions of the aorta were then performed. INDICATION: Patient is status post thoracentesis. FINDINGS: CT ANGIOGRAM CHEST: The thoracic aorta appears to be normal in caliber. No dissection is identified. The pulmonary arterial system is without evidence of thromboembolism. The central, lobar, and segmental pulmonary arterial branches are without evidence of filling defect. No pericardial fluid is seen. There are moderate to large bilateral pleural effusions layering dependently to a depth of 9.3 cm on the right and 5 cm on the left. No axillary lymphadenopathy is detected. There appears to be mediastinal lymphadenopathy. An enlarged lymph node in the upper mediastinum anterior to the left common carotid is seen measuring 2.5 x 1.6 cm. A prevascular space node measures 1.5 cm. A right paratracheal node measures 3.5 x 2.4 cm. Soft tissue fullness in the subcarinal region is noted. There is bilateral hilar lymphadenopathy. The parenchymal evaluation does show some groundglass patchy infiltrates in the left upper lobe and lingula. There is some parenchymal consolidation in the bilateral lower lobes, consistent with pneumonia or atelectasis. There is a tiny 6 mm nodule in the superior segment of the left lower lobe. There are nodular densities in the anterior right upper lobe, nonspecific, measuring approximately 6 mm. Evaluation of the bony structures does show patchy osteosclerotic lesions throughout the thoracic spine and bilateral ribs, suspicious for osteoblastic metastatic disease. CT ABDOMEN AND PELVIS: There is a tiny nonspecific low density in the left lobe of the liver measuring 7 mm in size. No other liver lesions are seen. The gallbladder does appear to be mildly dilated at approximately 9.0 x 4.8 cm. No gallstones are seen. No biliary ductal dilatation is identified. There does appear to be some soft tissue fullness in the region of the pancreatic tail measuring 3.9 x 2.6 cm. No pancreatic ductal dilatation is seen. The spleen is unremarkable. No adrenal mass is identified. The kidneys are unremarkable. The patient does have an abdominal aortic aneurysm which is infrarenal in location. There is an aortic stent graft in place. Both limbs of the stent graft appear to be patent. The excluded aneurysm sac measures approximately 8.2 cm AP x 8.7 cm transverse. No definite endoleak is seen. No free fluid is identified. The bowel loops are nonobstructed. There is diverticulosis but no evidence of acute diverticulitis. The bladder contains a catheter. There is diffuse bladder wall thickening and nodularity. The prostate is enlarged. Diffuse patchy osseous sclerotic lesions throughout the lumbar spine and bony pelvis are noted, again suspicious for osteoblastic metastatic disease. IMPRESSION: 1. No evidence of pulmonary embolism or thoracic aortic dissection. 2. Large bilateral pleural effusions, greatest on the right, with bilateral pulmonary infiltrates. There is also mediastinal and hilar lymphadenopathy, suspicious for metastatic disease or lymphoma. 3. Infrarenal abdominal aortic aneurysm. No definite evidence of endoleak or rupture is seen. 4. Uncomplicated diverticulosis. 5. Marked bladder wall thickening and nodularity. While this could be owing to chronic bladder outlet obstruction, the possibility of bladder neoplasm cannot be entirely excluded. 6. Soft tissue fullness in the region of the pancreatic tail. An MRI of the abdomen would be useful for further evaluation if clinically indicated. No pancreatic or biliary ductal dilatation is seen. 7. Diffuse sclerotic lesions throughout the axial skeleton, suggestive of osteoblastic metastatic disease. Dictated by: Dictated on workstation # [id number]
[2018-03-04 09:12] LABS: BODY FLUID APPEARENCE MKD CLDY; BODY FLUID COLOR YELLOW; BODY FLUID RBC COUNT 36600 /uL; BODY FLUID WBC TOTAL COUNT 295 /uL
[2018-03-04] MEDS ORDERED: HYDR-3816 PO (09:26)
[2018-03-04] MEDS ORDERED: CINN500C2 PO (09:26)
[2018-03-04] MEDS ORDERED: FLUT9.9S NS (09:26)
[2018-03-04] MEDS ORDERED: CLOP75TA28 PO (09:26)
[2018-03-04] MEDS ORDERED: GLUC500T10 PO (09:26)
[2018-03-04] MEDS ORDERED: CETI10TA20 PO (09:26)
[2018-03-04] MEDS ORDERED: METO-387 PO (09:26)
[2018-03-04] MEDS ORDERED: FURO40TA4 PO (09:26)
[2018-03-04] MEDS ORDERED: PARO20TA5 PO (09:26)
[2018-03-04] MEDS ORDERED: POTA20TA8 PO (09:26)
[2018-03-04] MEDS ORDERED: ACET-2267 PO (09:26)
[2018-03-04] MEDS ORDERED: ASPI-999 PO (09:26)
[2018-03-04] MEDS: HYDROcodone/APAP 7.5 MG/325 MG (LORTAB, LORCET PLUS) TABLET PO PRN ×3 (10:33→22:47)
[2018-03-04 11:14] LABS: BF OTHER CELLS 4 %; BODY FLUID PH 7.7; LYMPHOCYTES,BODY FLUID 89 %
--- NOTE | 2018-03-04 14:03 | Consultation-Cardiology ---
HPI-Cardiology Cardiology Consultation: Date of Consultation 03/04/18 Time Seen by Provider: 09:00 Date of Admission Attending Physician Jose Sheikh MD Admitting Physician Yuliya Huerta Aprn Consulting Physician TEJAL MOYA MD, MA, FACP, FACC, FSCAI, CCDS HPI: Chief Complaint: Shortness of breath 77 yo man with multiple comorbidities that are outlined below, admitted through the ER with increasing shortness of breath for several days that is now much improved after L thoracentesis by Dr Mayen. No cp or palp or syncope. Has bilateral leg and groin/scrotal swelling for several weeks. Denies fever or chills. Notes gen marked weakness and loss of stamina Review of Systems-Cardiology Review of Systems Constitutional: As described under HPI Eyes: No vision change Ears/Nose/Throat: No ear discharge, No nasal drainage, No recent hearing loss Respiratory: As described under HPI Cardiovascular: As described under HPI Gastrointestinal: No constipation, No diarrhea, No nausea, No vomiting Genitourinary: No dysuria, No hematuria, No urine frequency changes Musculoskeletal: back pain (chronic) Skin: No rash, No ulcerations Psychiatric/Neurological: No seizure, No focal weakness, No syncope Hematologic: No bleeding abnormalities All Other Systems Reviewed Negative Unless Noted: Yes DEY-Hdcbfo-Kcbsde Hx Patient Social History Marrital Status: Alcohol Use: Denies Use Recreational Drug Use: No Smoking Status: Former Smoker Type Used: Cigarettes 2nd Hand Smoke Exposure: No Recent Foreign Travel: No Recent Infectious Disease Expo: No Hospitalization with Isolation: Denies Physical Abuse Screen: No Sexual Abuse: No Immunizations Up To Date Date of Pneumonia Vaccine: Jul 04, 2016 Past Medical History PMH As described under Assessment. Family Medical History Family Medical History: Does not report fam h/o early CAD or SCD Allergies and Home Medications Allergies Coded Allergies: No Known Drug Allergies (Unverified , 03/03/18) Home Medications Acetaminophen 500 Mg Tablet, 1,500 MG PO BID PRN for PAIN-MILD, (Reported) Aspirin 81 Mg Tab.chew, 81 MG PO DAILY, (Reported) Cetirizine HCl 10 Mg Tablet, 10 MG PO DAILY PRN for ALLERGIES, (Reported) Clopidogrel Bisulfate 75 Mg Tablet, 75 MG PO DAILY, (Reported) Fluticasone Propionate 9.9 Ml Alpine.susp, 2 SPRAY NS DAILY PRN for ALLERGIES, ( Reported) Furosemide 40 Mg Tablet, 40 MG PO 1700, (Reported) Hydrocodone/Acetaminophen 1 Each Tablet, 1 TAB PO Q4H PRN for PAIN-MODERATE, ( Reported) Metoprolol Succinate 25 Mg Tab.er.24h, 25 MG PO DAILY, (Reported) Paroxetine HCl 20 Mg Tablet, 20 MG PO DAILY, (Reported) Potassium Chloride 20 Meq Tab.er.prt, 20 MEQ PO 1700, (Reported) Patient Home Medication List Home Medication List Reviewed: Yes Physical Exam-Cardiology Physical Exam Vital Signs/I&O 03/04/18 03/04/18 03/04/18 03/04/18 02:00 04:00 04:00 04:45 Temp 98.6 Pulse 98 98 Resp 29 21 B/P (MAP) 139/87 (104) 150/109 (123) Pulse Ox 93 96 92 O2 Delivery Nasal Cannula Nasal Cannula Nasal Cannula O2 Flow Rate 2.00 2.00 2.00 03/04/18 03/04/18 03/04/18 03/04/18 06:00 06:31 07:00 07:00 Temp 98.1 Pulse 105 94 92 Resp 22 20 B/P (MAP) 126/82 (97) 116/76 (89) Pulse Ox 94 100 100 O2 Delivery Nasal Cannula Nasal Cannula Nasal Cannula O2 Flow Rate 2.00 2.00 2.00 03/04/18 03/04/18 03/04/18 03/04/18 08:00 08:00 09:00 09:03 Pulse 90 94 Resp 20 20 B/P (MAP) 109/68 (82) 109/68 (82) Pulse Ox 100 96 100 O2 Delivery Nasal Cannula Nasal Cannula Nasal Cannula Room Air O2 Flow Rate 2.00 2.00 2.00 03/04/18 03/04/18 03/04/18 03/04/18 10:00 11:00 11:10 11:53 Temp 98.2 Pulse 98 104 B/P (MAP) 111/81 (91) 108/71 (83) Pulse Ox 100 94 94 O2 Delivery Room Air Room Air Room Air 03/04/18 12:40 Pulse Ox 97 O2 Delivery Room Air Capillary Refill : Less Than 3 Seconds Constitutional: AAO x 3, well-developed, well-nourished HEENT: EOMI, hearing is well preserved; No xanthelasmas are seen Neck: No carotid bruit; carotid pulses are 2 + bilaterally, with good upstrokes Respiratory: No accessory muscle use, No respiratory distress; other ( Diminshed air enty at bases and dullness to percussion) Cardiovascular: regular rate-rhythm, S1 and S2, systolic murmur (faint GURU at card base) Gastrointestinal: No tender; soft; No guarding, No rebound; audible bowel sounds Extremities: other (mild to mod bilat leg edema); No clubbing, No cyanosis Neurologic/Psychiatric: oriented x 3, grossly intact, power is 5/5 both on sides Skin: No rash on exposed areas, No ulcerations on exposed areas Data Review Labs Laboratory Tests 03/03/18 19:47: White Blood Count 4.7, Red Blood Count 4.22L, Hemoglobin 12.7L, Hematocrit 38L, Mean Corpuscular Volume 90, Mean Corpuscular Hemoglobin 30, Mean Corpuscular Hemoglobin Concent 33, Red Cell Distribution Width 14.4, Platelet Count 146, Mean Platelet Volume 11.0H, Neutrophils (%) (Auto) 73, Lymphocytes (%) (Auto) 18 , Monocytes (%) (Auto) 7, Eosinophils (%) (Auto) 1, Basophils (%) (Auto) 0, Neutrophils # (Auto) 3.4, Lymphocytes # (Auto) 0.8L, Monocytes # (Auto) 0.3, Eosinophils # (Auto) 0.1, Basophils # (Auto) 0.0, Sodium Level 140, Potassium Level 4.8, Chloride Level 109H, Carbon Dioxide Level 20L, Anion Gap 11, Blood Urea Nitrogen 36H, Creatinine 1.10, Estimat Glomerular Filtration Rate > 60, BUN /Creatinine Ratio 33, Glucose Level 197H, Calcium Level 8.2L, Total Bilirubin 0.8, Aspartate Amino Transf (AST/SGOT) 34, Alanine Aminotransferase (ALT/SGPT) 26, Alkaline Phosphatase 875H, Myoglobin 66.6, Troponin I < 0.30, C-Reactive Protein High Sensitivity 5.34H, B-Type Natriuretic Peptide 97.1, Total Protein 6.6, Albumin 3.6, Thyroid Stimulating Hormone (TSH) 0.68 03/04/18 03:45: White Blood Count 4.7, Red Blood Count 4.09L, Hemoglobin 12.3L, Hematocrit 37L, Mean Corpuscular Volume 90, Mean Corpuscular Hemoglobin 30, Mean Corpuscular Hemoglobin Concent 33, Red Cell Distribution Width 14.6H, Platelet Count 133, Mean Platelet Volume 11.4H, Neutrophils (%) (Auto) 77H, Lymphocytes (%) (Auto) 14, Monocytes (%) (Auto) 8, Eosinophils (%) (Auto) 1, Basophils (%) (Auto) 0, Neutrophils # (Auto) 3.6, Lymphocytes # (Auto) 0.6L, Monocytes # (Auto) 0.4, Eosinophils # (Auto) 0.1, Basophils # (Auto) 0.0, Sodium Level 140, Potassium Level 4.4, Chloride Level 110H, Carbon Dioxide Level 18L, Anion Gap 12, Blood Urea Nitrogen 33H, Creatinine 0.79, Estimat Glomerular Filtration Rate > 60, BUN /Creatinine Ratio 42, Glucose Level 157H, Calcium Level 8.1L, Total Bilirubin 0.9, Aspartate Amino Transf (AST/SGOT) 32, Alanine Aminotransferase (ALT/SGPT) 21, Alkaline Phosphatase 861H, Total Protein 6.3L, Albumin 3.4, Phosphorus Level 2.9, Magnesium Level 2.5H 03/04/18 05:39: Lactic Acid Level 0.94 03/04/18 06:30: Body Fluid Source PLEURAL, Body Fluid Color YELLOW, Body Fluid Appearance MKD CLDY, Body Fluid pH 7.7, Body Fluid WBC 295, Body Fluid RBC 91393, Body Fluid Polynuclear WBCs 5, Body Fluid Mononuclear WBCs 2, Body Fluid Lymphocytes 89, Body Fluid Other Cells 4, Body Fluid Glucose 144, Body Fluid Total Protein 4.5, Body Fluid Lactate Dehydrogenase 262, Body Fluid Triglycerides 805 03/04/18 12:51: Glucometer 172H Laboratory Tests 03/03/18 19:47 03/04/18 03:45 A/P-Cardiology Assessment/Admission Diagnosis Shortness of breath, primarily due to recurrent pleural eff (bilat, but L>R) for which he has had L thoracentesis on 01/31/18 at [facility] and on 03/04/18 at [facility]. Thoracentesis at [facility] has revealed a chylous effusion. Malignancy is suspected H/o pericardial window placement by Dr Araiza at [facility] on 02/14/18 ( report describes 750 ml of straw, cloudy fluid) CT chest and abdomen on 03/04/18: bilat pleural eff, mediastinal and hilar lymphadenopathy, lesion in the region of pancreatic tail, nodular bladder, diffuse sclerotic lesions throughout the skeleton that are suggestive of osteoblastic metastatic lesions CAD. Last cath and cor intervention on 01/06/18 (Dr Campbell): 2 stents to LAD (both Promus 2.25x16); LVEF 60%. 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
[2018-03-05] VITALS (12 sets, daily range): BP systolic 89–127; BP diastolic 61–81
[2018-03-05] MEDS: HYDROcodone/APAP 7.5 MG/325 MG (LORTAB, LORCET PLUS) TABLET PO PRN ×3 (03:09→16:34)
[2018-03-05 04:06] LABS: BASOPHILS % (AUTO) 1 % (0-10); EOSINOPHILS # (AUTO) 0.1 10^3/uL (0.0-0.3); EOSINOPHILS % (AUTO) 2 % (0-10); HEMATOCRIT 35 % (40-54); HEMOGLOBIN 11.7 G/DL (13.3-17.7); LYMPHOCYTES # (AUTO) 0.8 X 10^3 (1.0-4.0); LYMPHOCYTES % (AUTO) 17 % (12-44); MEAN CORPUSCULAR HEMOGLOBIN 30 PG (25-34); MEAN CORPUSCULAR HGB CONC 33 G/DL (32-36); MEAN CORPUSCULAR VOLUME 90 FL (80-99); MEAN PLATELET VOLUME 11.3 FL (7.4-10.4); MONOCYTES # (AUTO) 0.4 X 10^3 (0.0-1.0); MONOCYTES % (AUTO) 8 % (0-12); NEUTROPHILS # (AUTO) 3.6 X 10^3 (1.8-7.8); NEUTROPHILS % (AUTO) 73 % (42-75); PLATELET COUNT 118 10^3/uL (130-400); RED CELL DISTRIBUTION WIDTH 14.4 % (10.0-14.5); WHITE BLOOD COUNT 4.9 10^3/uL (4.3-11.0)
[2018-03-05 04:21] LABS: BUN/CREATININE RATIO 35; CALCIUM 7.8 MG/DL (8.5-10.1); CARBON DIOXIDE 20 MMOL/L (21-32); CHLORIDE 106 MMOL/L (98-107); CREATININE SERUM 0.88 MG/DL (0.60-1.30); GFR ESTIMATED > 60; GLUCOSE 179 MG/DL (70-105); MAGNESIUM 2.5 MG/DL (1.8-2.4); PHOSPHORUS 3.4 MG/DL (2.3-4.7); POTASSIUM 4.4 MMOL/L (3.6-5.0); SODIUM 139 MMOL/L (135-145)
[2018-03-05] MEDS: MAGNESIUM 1 GM/100 ML IVPB 100 ML IV SCH (04:28)
[2018-03-05] MEDS: POTASSIUM CL 10MEQ/50ML IVPB 50 ML IV SCH (04:28)
[2018-03-05] MEDS: inSUlin ASPART (NovoLOG) 1 UNIT/0.01 ML (CHARGE PER UNIT) SQ SCH ×4 (04:28→20:49)
[2018-03-05] MEDS: KCL 20 MEQ TAB (K-DUR) PO SCH (04:28)
--- NOTE | 2018-03-05 05:25 | Pulmonary Progress Note ---
Subjective Time Seen by Provider: 05:53 Subjective/Events-last exam PT has less SOB since thoracentesis Focused Exam Lactate Level 03/04/18 05:39: Lactic Acid Level 0.94 Exam Exam Vital Signs Date Time Temp Pulse Resp B/P (MAP) Pulse Ox O2 Delivery O2 Flow Rate FiO2 03/05/18 04:12 97.8 03/05/18 04:00 98 Nasal Cannula 2.00 03/05/18 03:00 89 19 93/70 (78) 96 Nasal Cannula 2.00 03/05/18 02:00 8 15 102/68 (79) 95 Nasal Cannula 2.00 03/05/18 01:00 87 16 104/64 (77) 96 Nasal Cannula 2.00 03/05/18 01:00 87 03/05/18 00:00 85 17 89/69 (76) 96 Nasal Cannula 2.00 03/05/18 00:00 98 Nasal Cannula 2.00 03/04/18 23:00 92 19 94/52 (66) 97 Nasal Cannula 2.00 03/04/18 22:00 91 32 102/64 (77) 96 Nasal Cannula 2.00 03/04/18 21:12 96 35 90 Nasal Cannula 2.00 03/04/18 21:00 90 29 100/59 (73) 93 Room Air 03/04/18 20:00 98 Nasal Cannula 2.00 03/04/18 20:00 90 21 111/61 (78) 92 Room Air 03/04/18 19:40 94 Room Air 03/04/18 19:38 97.0 Room Air 03/04/18 19:00 91 03/04/18 19:00 89 18 104/68 (80) 93 Room Air 03/04/18 18:00 95 17 94/68 (77) 93 Room Air 03/04/18 17:00 104 20 98/69 (79) 93 Room Air 03/04/18 16:00 97.7 03/04/18 16:00 96 18 99/59 (72) 91 Room Air 03/04/18 16:00 93 Room Air 03/04/18 15:03 94 Room Air 03/04/18 15:00 96 18 96/62 (73) 93 Room Air 03/04/18 14:00 92 17 102/63 (76) 94 Room Air 03/04/18 13:00 98 12 117/70 (86) 93 Room Air 03/04/18 13:00 94 03/04/18 12:40 97 Room Air 03/04/18 12:00 87 97/71 (80) 98 Room Air 03/04/18 11:53 94 Room Air 03/04/18 11:10 98.2 03/04/18 11:00 104 108/71 (83) 94 Room Air 03/04/18 10:00 98 111/81 (91) 100 Room Air 03/04/18 09:03 Room Air 03/04/18 09:00 94 20 109/68 (82) 100 Nasal Cannula 2.00 03/04/18 08:00 96 Nasal Cannula 2.00 03/04/18 08:00 90 20 109/68 (82) 100 Nasal Cannula 2.00 03/04/18 07:00 98.1 92 20 116/76 (89) 100 Nasal Cannula 2.00 03/04/18 07:00 94 03/04/18 06:31 100 Nasal Cannula 2.00 03/04/18 06:00 105 22 126/82 (97) 94 Nasal Cannula 2.00 I & O 03/05/18 07:00 Intake Total 1360 ml Output Total 2060 ml Balance -700 ml General Appearance: No Apparent Distress, Chronically ill HEENT: PERRL/EOMI, Moist Mucous Membranes; No Scleral Icterus (L), No Scleral Icterus (R) Neck: Non Tender, Supple Respiratory: No Accessory Muscle Use, No Respiratory Distress, Decreased Breath Sounds Cardiovascular: Regular Rate, Rhythm, No Murmur, Normal Peripheral Pulses Capillary Refill: Less Than 3 Seconds Gastrointestinal: non tender, soft, other (central epigastric incision were previous drain site was. Clean dry and intact.) Extremity: Normal Capillary Refill, No Calf Tenderness, Swelling (of left lower extremity- reports chronic) Neurologic/Psychiatric: Alert, Oriented x3, No Motor/Sensory Deficits, Normal Mood/Affect Skin: Normal Color, Warm/Dry Results Lab Laboratory Tests 03/03/18 19:47 03/04/18 03:45 03/05/18 03:43 Assessment/Plan Assessment/Plan Chylothorax with Large left pleural effusion s/p thoracentesis - Triglycerides from pleural fluid are 805. -Consult dietary to discuss low fat diet for treatment of chylothorax. -If pleural fluid continues to reaccumulate pleurex catheter can be considered. -Pt states he very SOB and wants effusion drained. He is on Plavix however pt is willing to take risk of bleeding secondary to severe SOB. -Will do thoracentesis this AM. BNP is only 97 -Will send pleural fluid down to cytology -Obtain records from [facility] hx of prostate cancer with mets to bone. -Alk phos is elevated PSA pending -CT of chest/abd/pelvis with IV contrast - reviewed -Obtain records from [facility]. Some records printed and reviewed from [facility]. -Consult hospice for education -It appears pt was dx 6mo ago and at that time refused treatment. - Hx of pericardial effusion s/p window Will transfer patient to 4th floor. Advance Care discuss with: patient End of Life Care: Pallative Care, Hospice Care (Home) Advance Care Discussion: initiate discussion, clarifying prognosis, identified end-of-life goals, developed treatment plan Time spent on discussion(mins): 60 ESTEBAN PEACOCK DO March 05, 2018 05:25
[2018-03-05] MEDS: RT-ALBUTEROL SULF 2.5 MG/3 ML PRE-MIX VIAL INH SCH ×3 (06:40→19:17)
--- NOTE | 2018-03-05 07:43 | Progress Note-Hospitalist ---
Subjective HPI/CC On Admission Date Seen by Provider: March 05, 2018 Time Seen by Provider: 07:39 Pt is a 77yoCM with a PMH of metastatic prostate cancer,CAD s/p stent, AAA s/p repair, and recent bilateral pericardial effusions and pleural effusions both drained at [facility] in [place] who presented to the ER with CC of SOB. He states all of his symptoms started 3 months ago with SOB, leg swelling, and groin swelling. Unfortunately his PCP closed his clinic so he had only been receiving care and workups from different ERs. Around 1 month ago he presented to the ER at [facility] for evaluation and was admitted for roughly 10 days for Subjective/Events-last exam No complaints. Was aware of CT results from yesterday and likelihood of symptoms being due to metastatic cancer. He states he wants to focus on quality and not quantity of life. He would like to talk with hospice. Focused Exam Lactate Level 03/04/18 05:39: Lactic Acid Level 0.94 Objective Exam Vital Signs Vital Signs Date Time Temp Pulse Resp B/P (MAP) Pulse Ox O2 Delivery O2 Flow Rate FiO2 03/05/18 06:42 96 Nasal Cannula 03/05/18 06:00 84 16 121/76 (91) 2.00 03/05/18 04:12 97.8 03/03/18 23:06 32 Capillary Refill : Less Than 3 Seconds General Appearance: No Apparent Distress, Chronically ill, Cachetic Respiratory: Lungs Clear, Decreased Breath Sounds Cardiovascular: Regular Rate, Rhythm, No Murmur Gastrointestinal: Normal Bowel Sounds, Non Tender, Soft Neurologic/Psychiatric: Alert, Oriented x3 Results/Procedures Lab Laboratory Tests 03/05/18 03:43 Patient resulted labs reviewed. Imaging: Reviewed Imaging Report Assessment/Plan Assessment and Plan Assess & Plan/Chief Complaint Metastatic Cancer Diagnosis/Problems Diagnosis/Problems (1) Prostate cancer metastatic to bone Status: Chronic Assessment & Plan: Diagnosed 3 years ago, declined aggressive treatment at the time Concerned that elevated alk phos, recurrently effusions, and anasarca due to recurrence CT Chest/Abd/pelvis shows diffuse bony mets, lymphadenopathy, and possible bone cancer Palliative care consult placed (2) Pleural effusion, left Status: Acute Assessment & Plan: Triglycerides in fluid 805 Consistent with chylothorax s/p thoracentesis 03/[address] Tiarra Ashraf lasix fluid sent for culture and path as well Likely due to lymphadenopathy (3) Elevated alkaline phosphatase level Status: Acute Assessment & Plan: As above (4) Edema Status: Acute Assessment & Plan: Improving, Continue on lasix Qualifiers: Edema type: unspecified Qualified Codes: R60.9 - Edema, unspecified (5) CAD (coronary artery disease) Status: Chronic Assessment & Plan: Cardiology consulted, appreciate recs Qualifiers: Coronary Disease-Associated Artery/Lesion type: [place] artery [place] vs. transplanted heart: [place] heart Associated angina: without angina Qualified Codes: I25.10 - Atherosclerotic heart disease of [place] coronary artery without angina pectoris (6) Aortic aneurysm Status: Chronic Assessment & Plan: Found incidentally at outside hospital and s/p repair Qualifiers: Aortic location: abdominal aorta Presence of rupture: without rupture Qualified Codes: I71.4 - Abdominal aortic aneurysm, without rupture (7) Counseling regarding end of life decision making Assessment & Plan: Discussed CT results, lab findings, and concerns for diffusely metastatic cancer with patient He states that he would like to concentrate on quality of life and does not want to go through any further biopsies or surgical procedures He would like to talk with hospice Hospice consult ordered Clinical Quality Measures DVT/VTE Risk/Contraindication: Risk Factor Score Per Nursin RFS Level Per Nursing on Admit: 4+=Very High DONA MORAN MD March 05, 2018 7:43 am
[2018-03-05] MEDS: FUROSEMIDE 40 MG/4 ML INJ (LASIX) IV SCH ×2 (07:59→16:34)
[2018-03-05] MEDS: CLOPIDOGREL 75 MG (PLAVIX) TABLET PO SCH (07:59)
--- NOTE | 2018-03-05 08:16 | Progress Note-Cardiology ---
Cardiology SOAP Progress Note Subjective: No cp or palp or syncope. Shortness of breath much improved post thoracentesis Objective: I&O/Vital Signs 03/04/18 03/04/18 03/04/18 03/04/18 21:00 21:12 22:00 23:00 Pulse 90 96 91 92 Resp 29 35 32 19 B/P (MAP) 100/59 (73) 102/64 (77) 94/52 (66) Pulse Ox 93 90 96 97 O2 Delivery Room Air Nasal Cannula Nasal Cannula Nasal Cannula O2 Flow Rate 2.00 2.00 2.00 03/05/18 03/05/18 03/05/18 03/05/18 00:00 00:00 01:00 01:00 Pulse 85 87 87 Resp 17 16 B/P (MAP) 89/69 (76) 104/64 (77) Pulse Ox 98 96 96 O2 Delivery Nasal Cannula Nasal Cannula Nasal Cannula O2 Flow Rate 2.00 2.00 2.00 03/05/18 03/05/18 03/05/18 03/05/18 02:00 03:00 04:00 04:00 Pulse 80 89 86 Resp 15 19 16 B/P (MAP) 102/68 (79) 93/70 (78) 104/61 (75) Pulse Ox 95 96 95 98 O2 Delivery Nasal Cannula Nasal Cannula Nasal Cannula Nasal Cannula O2 Flow Rate 2.00 2.00 2.00 2.00 03/05/18 03/05/18 03/05/18 03/05/18 04:12 05:00 06:00 06:42 Temp 97.8 Pulse 84 84 Resp 16 16 B/P (MAP) 117/69 (85) 121/76 (91) Pulse Ox 95 96 96 O2 Delivery Nasal Cannula Nasal Cannula Nasal Cannula O2 Flow Rate 2.00 2.00 03/05/18 07:00 Temp 97.8 Pulse 90 Resp 16 B/P (MAP) 118/81 (93) Pulse Ox 95 O2 Delivery Nasal Cannula O2 Flow Rate 2.00 03/05/18 00:00 Intake Total 760 ml Output Total 1150 ml Balance -390 ml Weight (Pounds): 168 Weight (Ounces): 0.0 Weight (Calculated Kilograms): 76.106833 Constitutional: AAO x 3, well-developed, well-nourished Respiratory: No accessory muscle use, No respiratory distress; other ( Diminshed air enty at bases and dullness to percussion) Cardiovascular: regular rate-rhythm, S1 and S2, systolic murmur (faint GURU at card base) Gastrointestional: No tender; soft; No guarding, No rebound; audible bowel sounds Genital/Rectal: other (bilat scrotal swelling; Reynoso cath in place) Extremities: other (no significant leg edema); No clubbing, No cyanosis Neurologic/Psychiatric: oriented x 3, grossly intact, power is 5/5 both on sides Skin: No rash on exposed areas, No ulcerations on exposed areas Results/Procedures: Labs Laboratory Tests 03/04/18 12:51: Glucometer 172H 03/04/18 15:32: Glucometer 178H 03/05/18 03:43: White Blood Count 4.9, Red Blood Count 3.90L, Hemoglobin 11.7L, Hematocrit 35L, Mean Corpuscular Volume 90, Mean Corpuscular Hemoglobin 30, Mean Corpuscular Hemoglobin Concent 33, Red Cell Distribution Width 14.4, Platelet Count 118L, Mean Platelet Volume 11.3H, Neutrophils (%) (Auto) 73, Lymphocytes (%) (Auto) 17 , Monocytes (%) (Auto) 8, Eosinophils (%) (Auto) 2, Basophils (%) (Auto) 1, Neutrophils # (Auto) 3.6, Lymphocytes # (Auto) 0.8L, Monocytes # (Auto) 0.4, Eosinophils # (Auto) 0.1, Basophils # (Auto) 0.0, Sodium Level 139, Potassium Level 4.4, Chloride Level 106, Carbon Dioxide Level 20L, Anion Gap 13, Blood Urea Nitrogen 31H, Creatinine 0.88, Estimat Glomerular Filtration Rate > 60, BUN /Creatinine Ratio 35, Glucose Level 179H, Calcium Level 7.8L, Phosphorus Level 3.4, Magnesium Level 2.5H Microbiology 03/04/18 Gram Stain - Final, Resulted 03/04/18 Body Fluid Culture - Preliminary, Resulted No growth Laboratory Tests 03/03/18 19:47 03/04/18 03:45 03/05/18 03:43 A/P: Assessment: Shortness of breath, primarily due to recurrent pleural eff (bilat, but L>R) for which he has had L thoracentesis on 01/31/18 at [facility] and on 03/04/18 at [facility]. Thoracentesis at [facility] has revealed a exudative, chylous effusion. Malignancy is suspected H/o [facility] ( report describes 750 ml of straw, cloudy fluid) CT chest and abdomen on 03/04/18: bilat pleural eff, mediastinal and hilar lymphadenopathy, lesion in the region of pancreatic tail, nodular bladder, diffuse sclerotic lesions throughout the skeleton that are suggestive of osteoblastic metastatic lesions CAD. Last cath and cor intervention on 01/06/18 (Dr Campbell): 2 stents to LAD (both Promus 2.25x16); LVEF 60%. 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 He desires conservative therapy and is considering Hospice * I discussed his case with Dr Rowland today, as well * Continue current regimen * Repeat echo * Prognosis guarded Clinical Quality Measures Type of Care: Type of Care: Pallative Care, Hospice Care (Home) TEJAL MOYA MD FACP FACC CCDS March 05, 2018 08:16
--- NOTE | 2018-03-05 08:19 | Diagnostic Imaging Report ---
Portable erect AP chest at 317 hours. INDICATION: Respiratory distress. FINDINGS: The heart size is at the upper limits of normal but stable when compared to 03/04/2018. The atelectasis/infiltrate and fluid in the periphery of left lung base seen on the prior study has diminished significantly. Only a small amount of residual density is still present. However, there continues to be alveolar/interstitial pulmonary infiltrate about the right hilum. The upper lungs are clear. The mediastinum is not widened. The osseous structures are intact. IMPRESSION: The appearance of the chest has improved as the left lung base is much better aerated. There is still considerable residual atelectasis/infiltrate about the right hilum. A followup exam would be recommended for continued evaluation. Dictated by: Dictated on workstation # [id number]
[2018-03-05] MEDS: CYCLOBENZAPRINE 10 MG (FLEXERIL) TAB PO PRN (18:56)
[2018-03-06] VITALS: BP 127/69
[2018-03-06] MEDS: HYDROcodone/APAP 7.5 MG/325 MG (LORTAB, LORCET PLUS) TABLET PO PRN ×2 (02:20→06:56)
[2018-03-06 04:00] VITALS: BP 119/61
[2018-03-06] MEDS: inSUlin ASPART (NovoLOG) 1 UNIT/0.01 ML (CHARGE PER UNIT) SQ SCH (05:42)
[2018-03-06 05:53] LABS: BASOPHILS % (AUTO) 0 % (0-10); EOSINOPHILS # (AUTO) 0.1 10^3/uL (0.0-0.3); EOSINOPHILS % (AUTO) 2 % (0-10); HEMATOCRIT 35 % (40-54); HEMOGLOBIN 11.7 G/DL (13.3-17.7); LYMPHOCYTES # (AUTO) 0.7 X 10^3 (1.0-4.0); LYMPHOCYTES % (AUTO) 18 % (12-44); MEAN CORPUSCULAR HEMOGLOBIN 30 PG (25-34); MEAN CORPUSCULAR HGB CONC 33 G/DL (32-36); MEAN CORPUSCULAR VOLUME 89 FL (80-99); MEAN PLATELET VOLUME 11.7 FL (7.4-10.4); MONOCYTES # (AUTO) 0.3 X 10^3 (0.0-1.0); MONOCYTES % (AUTO) 8 % (0-12); NEUTROPHILS # (AUTO) 2.8 X 10^3 (1.8-7.8); NEUTROPHILS % (AUTO) 72 % (42-75); PLATELET COUNT 106 10^3/uL (130-400); RED BLOOD COUNT 3.95 10^6/uL (4.35-5.85); RED CELL DISTRIBUTION WIDTH 14.5 % (10.0-14.5); WHITE BLOOD COUNT 3.9 10^3/uL (4.3-11.0)
[2018-03-06 06:18] LABS: BUN/CREATININE RATIO 36; CALCIUM 7.7 MG/DL (8.5-10.1); CARBON DIOXIDE 22 MMOL/L (21-32); CHLORIDE 101 MMOL/L (98-107); CREATININE SERUM 0.72 MG/DL (0.60-1.30); GFR ESTIMATED > 60; GLUCOSE 109 MG/DL (70-105); POTASSIUM 4.3 MMOL/L (3.6-5.0); SODIUM 136 MMOL/L (135-145)
--- NOTE | 2018-03-06 06:28 | Pulmonary Progress Note ---
Subjective Time Seen by Provider: 06:28 Subjective/Events-last exam Pt has decided to go on home hospice. Focused Exam Lactate Level 03/04/18 05:39: Lactic Acid Level 0.94 Exam Exam Vital Signs Date Time Temp Pulse Resp B/P (MAP) Pulse Ox O2 Delivery O2 Flow Rate FiO2 03/06/18 00:00 97.8 91 20 127/69 (88) 98 Nasal Cannula 2.00 03/05/18 20:00 Nasal Cannula 2.00 03/05/18 19:35 97.3 88 16 117/74 (88) 97 Nasal Cannula 2.00 03/05/18 19:17 Nasal Cannula 2.00 03/05/18 15:40 97.6 81 18 111/65 (80) 97 Nasal Cannula 2.00 03/05/18 12:00 97 Nasal Cannula 2.00 03/05/18 10:42 Nasal Cannula 2.00 03/05/18 09:00 89 17 127/76 (93) 96 Nasal Cannula 2.00 03/05/18 08:00 92 10 121/72 (88) 95 Nasal Cannula 2.00 03/05/18 08:00 97 Nasal Cannula 2.00 03/05/18 07:00 97.8 90 16 118/81 (93) 95 Nasal Cannula 2.00 03/05/18 07:00 89 03/05/18 06:42 96 Nasal Cannula I & O 03/06/18 07:00 Intake Total 2920 ml Output Total 3150 ml Balance -230 ml General Appearance: No Apparent Distress, Chronically ill HEENT: PERRL/EOMI, Moist Mucous Membranes; No Scleral Icterus (L), No Scleral Icterus (R) Neck: Non Tender, Supple Respiratory: No Accessory Muscle Use, No Respiratory Distress, Decreased Breath Sounds Cardiovascular: Regular Rate, Rhythm, No Murmur, Normal Peripheral Pulses Capillary Refill: Less Than 3 Seconds Gastrointestinal: non tender, soft, other (central epigastric incision were previous drain site was. Clean dry and intact.) Extremity: Normal Capillary Refill, No Calf Tenderness, Swelling (of left lower extremity- reports chronic) Neurologic/Psychiatric: Alert, Oriented x3, No Motor/Sensory Deficits, Normal Mood/Affect Skin: Normal Color, Warm/Dry Results Lab Laboratory Tests 03/05/18 03:43 03/06/18 05:21 Assessment/Plan Assessment/Plan Chylothorax with Large left pleural effusion s/p thoracentesis - Triglycerides from pleural fluid are 805. -Consult dietary to discuss low fat diet for treatment of chylothorax. -If pleural fluid continues to reaccumulate pleurex catheter can be considered. - pleural fluid cytology pending hx of prostate cancer with mets to bone. -Alk phos is elevated -CT of chest/abd/pelvis with IV contrast - reviewed -Obtain records from [employer]. Some records printed and reviewed from [employer]. -Consult hospice for education -It appears pt was dx 6mo ago and at that time refused treatment. - Hx of pericardial effusion s/p window Pt has decided to go with home hospice. Pt is ok from [facility] for discharge with home hospice. 232 ESTEBAN PEACOCK DO March 06, 2018 06:28
[2018-03-06] MEDS: FUROSEMIDE 40 MG/4 ML INJ (LASIX) IV SCH (06:49)
[2018-03-06] MEDS: CYCLOBENZAPRINE 10 MG (FLEXERIL) TAB PO PRN (06:57)
[2018-03-06] MEDS: RT-ALBUTEROL SULF 2.5 MG/3 ML PRE-MIX VIAL INH SCH (07:21)
[2018-03-06 07:25] VITALS: BP 119/61
[2018-03-06] MEDS ORDERED: CYCL10TA9 PO (07:50)
[2018-03-06 08:00] VITALS: BP 113/74
--- NOTE | 2018-03-06 08:00 | Discharge Summary-Hospitalist ---
Diagnosis/Chief Complaint Date of Admission March 03, 2018 at 9:22 pm Date of Discharge Discharge Date: March 06, 2018 Admission Diagnosis Recurrent pleural effusions Discharge Diagnosis (1) Prostate cancer metastatic to bone Status: Chronic Assessment & Plan: Diagnosed 3 years ago, declined aggressive treatment at the time Concerned that elevated alk phos, recurrently effusions, and anasarca due to recurrence CT Chest/Abd/pelvis shows diffuse bony mets, lymphadenopathy, and possible bladder cancer Palliative care consult placed, patient has elected to DC with [facility] (2) Pleural effusion, left Status: Acute Assessment & Plan: Triglycerides in fluid 805 Consistent with chylothorax s/p thoracentesis 03/[address] Mayen Continue lasix fluid sent for culture (no growth) and path as well Likely due to lymphadenopathy (3) Elevated alkaline phosphatase level Status: Acute Assessment & Plan: As above (4) Edema Status: Acute Assessment & Plan: Improving, Continue on lasix (5) CAD (coronary artery disease) Status: Chronic Assessment & Plan: Cardiology consulted, appreciate recs (6) Aortic aneurysm Status: Chronic Assessment & Plan: Found incidentally at outside hospital and s/p repair (7) Counseling regarding end of life decision making Assessment & Plan: Discussed CT results, lab findings, and concerns for diffusely metastatic cancer with patient He states that he would like to concentrate on quality of life and does not want to go through any further biopsies or surgical procedures Hospice consult ordered Would like to Dc home with [facility] Discharge Summary Procedures/Consulations Pulm- Dr Mayen Cardiology- Dr Chatterjee Discharge Physical Exam Allergies: Coded Allergies: No Known Drug Allergies (Unverified , 03/03/18) Vitals & I&Os Vital Signs Date Time Temp Pulse Resp B/P (MAP) Pulse Ox O2 Delivery O2 Flow Rate FiO2 03/06/18 07:25 96 97 28 03/06/18 07:21 Nasal Cannula 2.00 03/06/18 04:00 97.3 18 119/61 (80) General Appearance: Alert, Oriented X3 Respiratory: Clear to Auscultation Cardiovascular: Regular Rate Hospital Course Pt was admitted for recurrent pleural effusions and worsening dyspnea. He was found to have a chylothorax and CT Chest/Abd/pelvis revealed lymphadenopathy and bony lesions consistent with metastatic disease. he has a hisotry of both bladder cancer and prostate cancer. CT revealed finding concerning for bladder cnacer as well. He was made aware of this information and elected to pursue hospice as he would rather concentrate on quality of life. He elected [facility] and was DC home. Labs (last 24 hrs) Laboratory Tests 03/05/18 10:31: Glucometer 196H 03/05/18 16:26: Glucometer 213H 03/05/18 20:43: Glucometer 147H 03/06/18 05:12: Glucometer 111H 03/06/18 05:21: White Blood Count 3.9L, Red Blood Count 3.95L, Hemoglobin 11.7L, Hematocrit 35L , Mean Corpuscular Volume 89, Mean Corpuscular Hemoglobin 30, Mean Corpuscular Hemoglobin Concent 33, Red Cell Distribution Width 14.5, Platelet Count 106L, Mean Platelet Volume 11.7H, Neutrophils (%) (Auto) 72, Lymphocytes (%) (Auto) 18 , Monocytes (%) (Auto) 8, Eosinophils (%) (Auto) 2, Basophils (%) (Auto) 0, Neutrophils # (Auto) 2.8, Lymphocytes # (Auto) 0.7L, Monocytes # (Auto) 0.3, Eosinophils # (Auto) 0.1, Basophils # (Auto) 0.0, Sodium Level 136, Potassium Level 4.3, Chloride Level 101, Carbon Dioxide Level 22, Anion Gap 13, Blood Urea Nitrogen 26H, Creatinine 0.72, Estimat Glomerular Filtration Rate > 60, BUN /Creatinine Ratio 36, Glucose Level 109H, Calcium Level 7.7L Microbiology 03/04/18 Gram Stain - Final, Resulted 03/04/18 Body Fluid Culture - Preliminary, Resulted No growth 03/03/18 MRSA Screen - Final, Complete MRSA not isolated Patient resulted labs reviewed. Pending Labs Laboratory Tests 03/06/18 05:12: Glucometer 111 03/06/18 05:21: White Blood Count 3.9, Red Blood Count 3.95, Hemoglobin 11.7, Hematocrit 35, Mean Corpuscular Volume 89, Mean Corpuscular Hemoglobin 30, Mean Corpuscular Hemoglobin Concent 33, Red Cell Distribution Width 14.5, Platelet Count 106, Mean Platelet Volume 11.7, Neutrophils (%) (Auto) 72, Lymphocytes (%) (Auto) 18 , Monocytes (%) (Auto) 8, Eosinophils (%) (Auto) 2, Basophils (%) (Auto) 0, Neutrophils # (Auto) 2.8, Lymphocytes # (Auto) 0.7, Monocytes # (Auto) 0.3, Eosinophils # (Auto) 0.1, Basophils # (Auto) 0.0, Sodium Level 136, Potassium Level 4.3, Chloride Level 101, Carbon Dioxide Level 22, Anion Gap 13, Blood Urea Nitrogen 26, Creatinine 0.72, Estimat Glomerular Filtration Rate > 60, BUN/ Creatinine Ratio 36, Glucose Level 109, Calcium Level 7.7 Imaging: Reviewed Imaging Report Discussion & Recommendations Discharge Planning: >30 minutes discharge planning Discharge Home Medications: Active Scripts Active Cyclobenzaprine HCl 10 Mg Tablet 10 Mg PO TID PRN Reported Metoprolol Succinate 25 Mg Tab.er.24h 25 Mg PO DAILY Klor-Con M20 (Potassium Chloride) 20 Meq Tab.er.prt 20 Meq PO 1700 Furosemide 40 Mg Tablet 40 Mg PO 1700 Flonase Allergy Relief (Fluticasone Propionate) 9.9 Ml [place].susp 2 [place] NS DAILY PRN Clopidogrel (Clopidogrel Bisulfate) 75 Mg Tablet 75 Mg PO DAILY Hydrocodone-Acetamin 7.5-325 (Hydrocodone/Acetaminophen) 1 Each Tablet 1 Tab PO Q4H PRN Zyrtec (Cetirizine HCl) 10 Mg Tablet 10 Mg PO DAILY PRN Aspirin 81 Mg Tab.chew 81 Mg PO DAILY Tylenol Extra Strength (Acetaminophen) 500 Mg Tablet 1,500 Mg PO BID PRN Paroxetine HCl 20 Mg Tablet 20 Mg PO DAILY Instructions to patient/family Please see electronic discharge instructions given to patient. Clinical Quality Measures DVT/VTE Risk/Contraindication: Risk Factor Score Per Nursin RFS Level Per Nursing on Admit: 4+=Very High Problem Qualifiers (1) Edema: Edema type: unspecified Qualified Codes: R60.9 - Edema, unspecified (2) CAD (coronary artery disease): Coronary Disease-Associated Artery/Lesion type: [place] artery [place] vs. transplanted heart: [place] heart Associated angina: without angina Qualified Codes: I25.10 - Atherosclerotic heart disease of [place] coronary artery without angina pectoris (3) Aortic aneurysm: Aortic location: abdominal aorta Presence of rupture: without rupture Qualified Codes: I71.4 - Abdominal aortic aneurysm, without rupture DONA MORAN MD March 06, 2018 8:00 am
--- NOTE | 2018-03-06 08:46 | Progress Note-Cardiology ---
Cardiology SOAP Progress Note Subjective: No new symptoms Shortness of breath much improved post thoracentesis No cp or palp or syncope Has decided on Hospice Objective: I&O/Vital Signs 03/06/18 03/06/18 03/06/18 03/06/18 00:00 04:00 07:21 07:25 Temp 97.8 97.3 Pulse 91 86 96 Resp 20 18 B/P (MAP) 127/69 (88) 119/61 (80) Pulse Ox 98 98 97 97 O2 Delivery Nasal Cannula Nasal Cannula Nasal Cannula O2 Flow Rate 2.00 2.00 2.00 FiO2 28 03/06/18 03/06/18 07:30 08:00 Temp 97.3 97.9 Pulse 105 Resp 22 B/P (MAP) 113/74 (87) Pulse Ox 95 O2 Delivery Nasal Cannula O2 Flow Rate 2.00 03/06/18 00:00 Intake Total 1860 ml Output Total 1450 ml Balance 410 ml Weight (Pounds): 167 Weight (Ounces): 2.0 Weight (Calculated Kilograms): 75.700760 Constitutional: AAO x 3, well-developed, well-nourished Respiratory: No accessory muscle use, No respiratory distress; other ( Diminshed air enty at bases and dullness to percussion) Cardiovascular: regular rate-rhythm, S1 and S2, systolic murmur (faint GURU at card base) Gastrointestional: No tender; soft; No guarding, No rebound; audible bowel sounds Genital/Rectal: other (bilat scrotal swelling; Reynoso cath in place) Extremities: other (no significant leg edema); No clubbing, No cyanosis Neurologic/Psychiatric: oriented x 3, grossly intact, power is 5/5 both on sides Skin: No rash on exposed areas, No ulcerations on exposed areas Results/Procedures: Labs Laboratory Tests 03/05/18 10:31: Glucometer 196H 03/05/18 16:26: Glucometer 213H 03/05/18 20:43: Glucometer 147H 03/06/18 05:12: Glucometer 111H 03/06/18 05:21: White Blood Count 3.9L, Red Blood Count 3.95L, Hemoglobin 11.7L, Hematocrit 35L , Mean Corpuscular Volume 89, Mean Corpuscular Hemoglobin 30, Mean Corpuscular Hemoglobin Concent 33, Red Cell Distribution Width 14.5, Platelet Count 106L, Mean Platelet Volume 11.7H, Neutrophils (%) (Auto) 72, Lymphocytes (%) (Auto) 18 , Monocytes (%) (Auto) 8, Eosinophils (%) (Auto) 2, Basophils (%) (Auto) 0, Neutrophils # (Auto) 2.8, Lymphocytes # (Auto) 0.7L, Monocytes # (Auto) 0.3, Eosinophils # (Auto) 0.1, Basophils # (Auto) 0.0, Sodium Level 136, Potassium Level 4.3, Chloride Level 101, Carbon Dioxide Level 22, Anion Gap 13, Blood Urea Nitrogen 26H, Creatinine 0.72, Estimat Glomerular Filtration Rate > 60, BUN /Creatinine Ratio 36, Glucose Level 109H, Calcium Level 7.7L Microbiology 03/04/18 Gram Stain - Final, Resulted 03/04/18 Body Fluid Culture - Preliminary, Resulted No growth 03/03/18 MRSA Screen - Final, Complete MRSA not isolated A/P: Assessment: Shortness of breath, primarily due to recurrent pleural eff (bilat, but L>R) for which he has had L thoracentesis on 01/31/18 at [facility] and on 03/04/18 at [facility]. Thoracentesis at [facility] has revealed a exudative, chylous effusion. Malignancy is suspected H/o pericardial window placement by Dr Araiza at [facility] on 02/14/18 ( report describes 750 ml of straw, cloudy fluid) CT chest and abdomen on 03/04/18: bilat pleural eff, mediastinal and hilar lymphadenopathy, lesion in the region of pancreatic tail, nodular bladder, diffuse sclerotic lesions throughout the skeleton that are suggestive of osteoblastic metastatic lesions CAD. Last cath and cor intervention on 01/06/18 (Dr Campbell): 2 stents to LAD (both Promus 2.25x16); LVEF 60%. 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
[2018-03-06] MEDS: CLOPIDOGREL 75 MG (PLAVIX) TABLET PO SCH (08:55)
[2018-03-06] MEDS ORDERED: CLOPIDOGREL 75 MG (PLAVIX) TABLET PO ONE (09:00)
[2018-03-06] MEDS ORDERED: ASPIRIN 81 MG CHEW (CHILDREN'S ASA) PO NR (09:50)
[2018-03-06] MEDS ORDERED: CLOPIDOGREL 75 MG (PLAVIX) TABLET PO NR (09:50)
[2018-03-06 10:15] VITALS: BP 113/74
== END 2018-03-06 10:15 | disposition hospice, home (50) | DRG 187 ==
LOC: EDUNIT# 19:32 → ER 19:33 → ICU 21:22 → 4TH 03-05 14:15
PROVIDERS: ADMIT Internal Medicine; ATTEND Internal Medicine
PROC: 0W9B3ZX Drainage of Left Pleural Cavity, Percutaneous Approach, Diagnostic (ICD-10-PCS; principal; 2018-03-04)
DX: J94.0 Chylous effusion (principal); J91.0 Malignant pleural effusion; I89.8 Other specified noninfective disorders of lymphatic vessels and lymph nodes; C79.51 Secondary malignant neoplasm of bone; C79.11 Secondary malignant neoplasm of bladder; C61 Malignant neoplasm of prostate; Z66 Do not resuscitate; R60.0 Localized edema; N50.89 Other specified disorders of the male genital organs; I25.10 Atherosclerotic heart disease of native coronary artery without angina pectoris; R59.0 Localized enlarged lymph nodes; R74.8 Abnormal levels of other serum enzymes; E78.00 Pure hypercholesterolemia, unspecified; C44.90 Unspecified malignant neoplasm of skin, unspecified; K86.9 Disease of pancreas, unspecified; I71.4 Abdominal aortic aneurysm, without rupture; Z92.3 Personal history of irradiation; Z95.5 Presence of coronary angioplasty implant and graft; Z95.820 Peripheral vascular angioplasty status with implants and grafts; Z87.891 Personal history of nicotine dependence
CPT/HCPCS: 36415; 71045; 71275; 74174; 80048; 80053; 82945; 82962; 83605; 83615; 83735; 83874; 83880; 83986; 84100; 84153; 84157; 84443; 84478; 84484; 85025; 86141; 87070; 87075; 87081; 87205; 88112; 88305; 89051; 93005; 93041; 94640; 94760; 96374